=== PATIENT | male | born 1970 | race Caucasian/White ===

== ENCOUNTER → 2023-09-08 09:08 | Outpatient (REF) | payer OTHER, SELFPAY | LOC: REG 09:08 | PROVIDERS: ATTENDING PHYSICIAN Internal Medicine | DX: M25.562 Pain in left knee (principal); M25.362 Other instability, left knee | CPT/HCPCS: 73564 ==

== ENCOUNTER → 2023-09-11 09:44 | Outpatient (REF) | payer OTHER, SELFPAY | LOC: MRI 3T 09:44 | PROVIDERS: ATTENDING PHYSICIAN Internal Medicine Hematology & Oncology; FAMILY PHYSICIAN Internal Medicine | DX: C62.12 Malignant neoplasm of descended left testis (principal) | CPT/HCPCS: 74183; A9575 ==

== ENCOUNTER → 2023-09-12 10:43 | Outpatient (REF) | payer OTHER, SELFPAY | LOC: MRI 3T 10:43 | PROVIDERS: ATTENDING PHYSICIAN Internal Medicine Hematology & Oncology; FAMILY PHYSICIAN Internal Medicine | DX: C62.12 Malignant neoplasm of descended left testis (principal) | CPT/HCPCS: 72197; A9575 ==

== ENCOUNTER → 2024-03-04 08:36 | Outpatient (REF) | payer OTHER, SELFPAY | LOC: MRI 3T 08:36 | PROVIDERS: ATTENDING PHYSICIAN Internal Medicine Hematology & Oncology; FAMILY PHYSICIAN Internal Medicine | DX: C62.12 Malignant neoplasm of descended left testis (principal) | CPT/HCPCS: 74183; A9575 ==

== ENCOUNTER → 2024-03-05 07:33 | Outpatient (REF) | payer OTHER, SELFPAY | LOC: MRI 3T 07:33 | PROVIDERS: ATTENDING PHYSICIAN Internal Medicine Hematology & Oncology; FAMILY PHYSICIAN Internal Medicine | DX: C62.12 Malignant neoplasm of descended left testis (principal) | CPT/HCPCS: 72197; A9575 ==

== ENCOUNTER → 2024-04-29 07:34 | Outpatient (REF) | payer OTHER, SELFPAY | LOC: RAD 07:34 | PROVIDERS: ATTENDING PHYSICIAN Internal Medicine Hematology & Oncology; FAMILY PHYSICIAN Internal Medicine | DX: C62.12 Malignant neoplasm of descended left testis (principal) | CPT/HCPCS: 71046 ==

== ENCOUNTER → 2024-10-13 13:00 | Outpatient (REF) | payer OTHER, SELFPAY | LOC: MRI 3T 13:00 | PROVIDERS: ATTENDING PHYSICIAN Internal Medicine Hematology & Oncology; FAMILY PHYSICIAN Internal Medicine | DX: C62.12 Malignant neoplasm of descended left testis (principal) | CPT/HCPCS: 72197; 74183; A9575 ==

== ENCOUNTER → 2024-10-14 11:10 | Outpatient (REF) | payer OTHER, SELFPAY | LOC: RAD 11:10 | PROVIDERS: ATTENDING PHYSICIAN Internal Medicine Hematology & Oncology; FAMILY PHYSICIAN Internal Medicine | DX: C62.12 Malignant neoplasm of descended left testis (principal) | CPT/HCPCS: 71048 ==